=== PATIENT | male | born 1965 | race Caucasian/White ===

== ENCOUNTER 2018-04-13 09:47 | Day surgery (SDC) | payer OTHER ==
[2018-04-13] MEDS ORDERED: PROPOFOL 40 ML (11:42)
== END 2018-04-13 14:16 | disposition home or self-care (01) ==
LOC: GIL 09:47
DX: Z12.11 Encounter for screening for malignant neoplasm of colon (principal); D12.5 Benign neoplasm of sigmoid colon; K57.30 Diverticulosis of large intestine without perforation or abscess without bleeding; I10 Essential (primary) hypertension; E11.9 Type 2 diabetes mellitus without complications
CPT/HCPCS: 45380; 82962; 88305